=== PATIENT | female | born 1940 | race Caucasian/White ===

== ENCOUNTER 2017-03-16 07:27 | Day surgery (SDC) | payer MEDICARE ==
[~2017-03-16] VITALS: Ht 167.6 cm; Wt 79.3 kg
[~2017-03-16 07:27] MED LIST: ALPH50CA PO; AMLO2.5T PO; ASPI-1197 PO; ATOR10TA69 PO; BIOT10005 PO; CALC600T12 PO; CHOL500045 PO; KRIL500C PO; LIOT5TAB8 PO; LOSA50TA37 PO; PROG100C6 PO; SODIUM CHLORIDE 0.9% 1000ML 1,000 ML IV ONE; TIMO5DRO39 OP; [UNRECOGNIZED DRUG - OTHER] OU
[2017-03-16 07:46] VITALS: BP 114/68
[2017-03-16] MEDS ORDERED: MEPERIDINE-PF 50 MG/ML SYG ONE (08:50)
[2017-03-16] MEDS ORDERED: MIDAZOLAM HCL 1 MG/ML 2ML VIAL ONE (08:50)
[2017-03-16 09:16] VITALS: BP 84/44
== END 2017-03-16 09:55 | disposition home or self-care (01) ==
LOC: DAH 07:27 → ENDO 07:27
PROVIDERS: ATTEND Internal Medicine Gastroenterology
DX: Z12.11 Encounter for screening for malignant neoplasm of colon (principal); D12.3 Benign neoplasm of transverse colon; K62.1 Rectal polyp; Z68.34 Body mass index [BMI] 34.0-34.9, adult; Z80.0 Family history of malignant neoplasm of digestive organs; Z79.899 Other long term (current) drug therapy; Z79.84 Long term (current) use of oral hypoglycemic drugs; E03.9 Hypothyroidism, unspecified; H40.9 Unspecified glaucoma; K57.30 Diverticulosis of large intestine without perforation or abscess without bleeding
CPT/HCPCS: 45380; 88305; A4606; J2175; J2250; J7030

== ENCOUNTER → 2022-04-19 | Outpatient (CLI) | payer MEDICARE ==
[~2022-04-19] MED LIST changes: -AMLO2.5T PO; +AMLO2.5T4 PO; +CALC-1125 PO; -CALC600T12 PO; +LIOT5TAB11 PO; -LIOT5TAB8 PO; -LOSA50TA37 PO; +LOSA50TA64 PO; +PROG100C11 PO; -PROG100C6 PO; -SODIUM CHLORIDE 0.9% 1000ML 1,000 ML IV ONE
== END | disposition home or self-care (01) ==
LOC: RAH 13:44
PROVIDERS: ATTEND Orthopaedic Surgery
DX: I70.0 Atherosclerosis of aorta (principal); M17.12 Unilateral primary osteoarthritis, left knee
CPT/HCPCS: 93926

== ENCOUNTER → 2022-05-18 | Outpatient (CLI) | payer MEDICARE ==
[~2022-05-18] MED LIST changes: +CETI10TA57 PO; +LEVO100T12 PO; +MECL-226 PO; +NETA2.5D OP; +VIT1CAPS47 PO; +olmesartan PO; +progesterone TP
== END | disposition home or self-care (01) ==
LOC: RAH 14:40
PROVIDERS: ATTEND Orthopaedic Surgery
DX: M17.12 Unilateral primary osteoarthritis, left knee (principal); M16.12 Unilateral primary osteoarthritis, left hip; M19.072 Primary osteoarthritis, left ankle and foot; M25.872 Other specified joint disorders, left ankle and foot
CPT/HCPCS: 73700